=== PATIENT | male | born 1965 | race American Indian/Alaskan Native ===

== ENCOUNTER 2021-06-21 10:53 | Emergency (ER) | payer SELFPAY ==
[2021-06-21 11:03] VITALS: BP 165/97
[2021-06-21] MEDS ORDERED: cefTRIAXone/NS 1 GM/50 ML 1 GM/50 ML BAG IV ONE (11:18)
--- NOTE | 2021-06-21 11:24 | Emergency Department Report ---
- General Chief complaint: Extremity Injury, Lower Stated complaint: FOOT INFECTION Time Seen by Provider: 06/21/21 11:09 Source: patient Mode of arrival: Ambulatory Limitations: No Limitations - History of Present Illness MD complaint: rash Onset/Timin (Weeks) -: Gradual Tetanus Up to Date: unsure Location: L foot Severity: moderate Severity scale (0 -10): 7 Quality: burning, other (Itching) Consistency: constant Improves with: topical medication Worsens with: other (Ambulation) Context: none Associated symptoms: denies other symptoms Treatments Prior to Arrival: OTC topical medication - Related Data Previous Rx's Medication Instructions Recorded Last Taken Type Doxycycline Monohydrate 100 mg PO BIDWM #20 capsule 06/21/21 Unknown Rx cephALEXin [Keflex] 500 mg PO Q12HR #20 cap 06/21/21 Unknown Rx Allergies Allergy/AdvReac Type Severity Reaction Status Date / Time No Known Allergies Allergy Verified 01/31/15 00:34 Abscess Boil HPI - HPI Chief Complaint: Extremity Injury, Lower Stated Complaint: FOOT INFECTION Time Seen by Provider: 06/21/21 11:09 Duration: >1 Week Location: Lower Extremity Severity: Moderate History: No Fever, No Pain, No Purulent Drainage, No Numbness, No Foreign Body, No Previous History, No Insect Bite HPI: 56-year-old male presents to the emergency department with a left foot rash and swelling. The symptoms started about 3 weeks ago. He thought he just had some athlete's foot and just tried to try some topical medications [id number] it continued to get worse. He switched to Lamisil and got some mild improvement. However, it continues to get worse. He denies any fever or chills, nausea or vomiting. He is unaware of any medical problems, specifically diabetes. Home Medications: Previous Rx's Medication Instructions Recorded Last Taken Type Doxycycline Monohydrate 100 mg PO BIDWM #20 capsule 06/21/21 Unknown Rx cephALEXin [Keflex] 500 mg PO Q12HR #20 cap 06/21/21 Unknown Rx Allergies/Adverse Reactions: Allergies Allergy/AdvReac Type Severity Reaction Status Date / Time No Known Allergies Allergy Verified 01/31/15 00:34 ED Review of Systems ROS: Stated complaint: FOOT INFECTION Other details as noted in HPI Comment: All other systems reviewed and negative Musculoskeletal: joint swelling Skin: rash ED Past Medical Hx - Surgical History Past Surgical History?: No - Social History Smoking Status: Never Smoker Substance Use Type: Alcohol, Marijuana - Medications Home Medications: Home Medications Medication Instructions Recorded Confirmed Last Taken Type Doxycycline Monohydrate 100 mg PO BIDWM #20 capsule 06/21/21 Unknown Rx cephALEXin [Keflex] 500 mg PO Q12HR #20 cap 06/21/21 Unknown Rx ED Physical Exam - General Limitations: No Limitations General appearance: alert, in no apparent distress - Head Head exam: Present: atraumatic, normocephalic - Eye Eye exam: Present: normal appearance - ENT ENT exam: Present: mucous membranes moist - Neck Neck exam: Present: normal inspection - Respiratory Respiratory exam: Present: normal lung sounds bilaterally. Absent: respiratory distress - Cardiovascular Cardiovascular Exam: Present: regular rate, normal rhythm. Absent: systolic murmur, diastolic murmur, rubs, gallop - GI/Abdominal GI/Abdominal exam: Present: soft, normal bowel sounds - Rectal Rectal exam: Present: deferred - Extremities Exam Extremities exam: Present: full ROM, pedal edema (Left foot). Absent: tendernes s - Expanded Lower Extremity Exam Left Foot/Toe exam: Present: swelling (Significant soft tissue swelling of the distal left foot with intertriginous maceration.) Neuro vascular tendon exam: Present: no vascular compromise Gait: Positive: antalgic - Back Exam Back exam: Present: normal inspection - Neurological Exam Neurological exam: Present: alert, oriented X3 - Psychiatric Psychiatric exam: Present: normal affect, normal mood - Skin Skin exam: Present: warm, dry, intact, normal color. Absent: rash ED Course Vital Signs 06/21/21 06/21/21 11:00 13:51 Temperature 98.7 F Pulse Rate 61 58 L Respiratory 16 18 Rate Blood Pressure 165/97 [Right] O2 Sat by Pulse 99 Oximetry ED Medical Decision Making - Lab Data Result diagrams: 06/21/21 11:40 06/21/21 11:40 - Radiology Data Radiology results: report reviewed, image reviewed Soft tissue swelling without evidence of foreign body, gas, underlying fracture or osteomyelitis. - Medical Decision Making This is consistent with cellulitis, likely evolving from tinea pedis. Will treat him with antibiotics and give him a dose of steroids here. Critical care attestation.: If time is entered above; I have spent that time in minutes in the direct care of this critically ill patient, excluding procedure time. ED Disposition Clinical Impression: Cellulitis of foot Disposition: HOME / SELF CARE / HOMELESS Is pt being admited?: No Does the pt Need Aspirin: No Condition: Stable Instructions: Cellulitis, Adult Additional Instructions: Take the medications that have been prescribed. Keep your foot elevated and clean. Follow-up with the primary care provider or return to the emergency department for any new or worsening symptoms. Prescriptions: Doxycycline Monohydrate 100 mg PO BIDWM #20 capsule cephALEXin [Keflex] 500 mg PO Q12HR #20 cap Referrals: PRIMARY CARE, [Primary Care Provider] - 3-5 Days Forms: Work/School Release Form
[2021-06-21 11:52] LABS: Basophils % (Auto) 0.6 % (0.0-1.8); Eosinophils # (Auto) 0.2 K/mm3 (0.0-0.4); Eosinophils % (Auto) 3.3 % (0.0-4.3); Hematocrit 46.1 % (35.5-45.6); Lymphocytes # (Auto) 1.6 K/mm3 (1.2-5.4); Lymphocytes % (Auto) 25.3 % (13.4-35.0); Mean Corpuscular HGB Conc 33 % (32-34); Mean Corpuscular Volume 98 fl (84-94); Monocytes # (Auto) 0.5 K/mm3 (0.0-0.8); Monocytes % (Auto) 7.4 % (0.0-7.3); Platelet Count 299 K/mm3 (140-440); Red Cell Distribution Width 15.2 % (13.2-15.2)
--- NOTE | 2021-06-21 11:55 | XRay Report ---
LEFT FOOT 2 VIEWS INDICATION: infection. COMPARISON: None. IMPRESSION: There is mild distal soft tissue swelling or edema. No soft tissue gas or foreign body i s detected. The bony structures are intact. No evidence for fracture or bony destruction. 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 Signer Name: Kar Fuentes Jr, MD Signed: 06/21/2021 11:50 AM Workstation Name: [id number]
[2021-06-21 12:10] LABS: Alanine Aminotransferase 41 units/L (7-56); Albumin 4.5 g/dL (3.9-5); BUN/Creatinine Ratio 18; Blood Urea Nitrogen 14 mg/dL (9-20); Calcium 9.3 mg/dL (8.4-10.2); Hemolysis Index 10
[2021-06-21] MEDS ORDERED: dexAMETHasone 20 MG/5 ML VIAL IV ONE (12:51)
== END 2021-06-21 13:53 | disposition home or self-care (01) ==
LOC: ED 10:53
DX: L03.119 Cellulitis of unspecified part of limb (principal); F10.20 Alcohol dependence, uncomplicated; F12.90 Cannabis use, unspecified, uncomplicated
CPT/HCPCS: 36415; 73620; 80053; 82140; 85025; 96365; 96375; 99284; J0696; J1100